=== PATIENT | female | born 1950 | race Caucasian/White ===

== ENCOUNTER → 2017-08-24 | Outpatient (CLI) | payer OTHER ==
[~2017-08-24] MED LIST: IOPAMIDOL (ISOVUE-300) 100 ML BTL ONE
== END ==
LOC: CIMAGING 09:23
PROVIDERS: ATTEND Family Medicine
DX: C79.00 Secondary malignant neoplasm of unspecified kidney and renal pelvis (principal); C77.2 Secondary and unspecified malignant neoplasm of intra-abdominal lymph nodes; C78.7 Secondary malignant neoplasm of liver and intrahepatic bile duct; C78.00 Secondary malignant neoplasm of unspecified lung; C49.9 Malignant neoplasm of connective and soft tissue, unspecified; E27.8 Other specified disorders of adrenal gland; Z90.710 Acquired absence of both cervix and uterus
CPT/HCPCS: 71260; 74177; Q9967

== ENCOUNTER 2017-09-11 08:57 | Day surgery (SDC) | payer OTHER ==
[2017-09-11] MEDS ORDERED: NALOXONE HCL 0.4 MG/ML INJ ONE (09:33)
[2017-09-11] MEDS ORDERED: FLUMAZENIL 0.5 MG/5 ML MDV IVP ONE (09:33)
[2017-09-11] MEDS ORDERED: MIDAZOLAM 2 MG/2 ML VIAL ONE (09:33)
[2017-09-11] MEDS ORDERED: fentaNYL 100 MCG/2 ML INJ ONE (09:33)
[2017-09-11] MEDS ORDERED: MEPERIDINE 25 MG/ML SYR IVP PRN (09:38)
[2017-09-11] MEDS ORDERED: GLUCAGON HCL 1 MG VIAL IVP PRN (09:38)
[2017-09-11] MEDS ORDERED: FLUMAZENIL 0.5 MG/5 ML MDV IVP PRN (09:38)
[2017-09-11] MEDS ORDERED: NALOXONE HCL 0.4 MG/ML INJ IVP PRN (09:38)
[2017-09-11] MEDS ORDERED: MIDAZOLAM 2 MG/2 ML VIAL IVP PRN (09:38)
[2017-09-11] MEDS ORDERED: fentaNYL 100 MCG/2 ML INJ IVP PRN (09:38)
[2017-09-11] MEDS ORDERED: HEPARIN 10,000 UNIT/10 ML MDV (1,000 UNIT/ML) IVP PRN (09:38)
[2017-09-11] MEDS ORDERED: PROTAMINE SULFATE 50 MG/5 ML VIAL IVP PRN (09:38)
[2017-09-11] MEDS ORDERED: ALTEPLASE 2 MG VIAL IVP PRN (09:38)
[2017-09-11] MEDS ORDERED: hydrALAZINE 20 MG/ML VIAL IVP PRN (09:38)
[2017-09-11] MEDS ORDERED: NS 1,000 ML IV SCH (09:45)
[2017-09-11 10:06] LABS: PLATELET COUNT 569 10^3/uL (150-400)
[2017-09-11 10:14] LABS: INR 1.02 (0.83-1.16); PROTIME(PATIENT) 13.6 SEC (12.0-15.0)
--- NOTE | 2017-09-11 10:46 | PDRADPRE ---
Radiology History & Physical Indication for procedure: other (masses) Home medications: Ambien 5 mg PO PRN 09/06/17 [Last Taken 09/06/17] Herbals/Supplements -Info Only DAILY 09/06/17 [Last Taken 09/10/17] Mirtazapine 15 mg PO HS 09/06/17 [Last Taken 09/10/17] Tylenol 09/11/17 [Last Taken 09/11/17] Allergies/Adverse Reactions: No Known Allergies Allergy (Unverified 09/06/17 18:22) Mental status: A&Ox3 Heart exam: regular rate and rhythm Mallampati Score: Class 2 (ASA 3)
[2017-09-11] MEDS ORDERED: LIDOCAINE 1% 300 MG/30 ML SDV ONE (11:21)
[2017-09-11] MEDS ORDERED: ONDANSETRON 4 MG/2 ML VIAL IVP PRN (12:42)
[2017-09-11] MEDS ORDERED: oxyCODONE IR 5 MG TAB PO PRN (12:42)
[2017-09-11] MEDS ORDERED: ACETAMINOPHEN 325 MG TAB PO PRN (14:43)
[2017-09-11 16:06] VITALS: BP 112/76
== END 2017-09-11 18:28 | disposition home or self-care (01) ==
LOC: FIMAGING 08:57
PROVIDERS: ATTEND Internal Medicine Hematology & Oncology
PROC: 0TB13ZX Excision of Left Kidney, Percutaneous Approach, Diagnostic (ICD-10-PCS; principal; 2017-09-11 12:42)
DX: C64.2 Malignant neoplasm of left kidney, except renal pelvis (principal); Z78.0 Asymptomatic menopausal state; Z87.891 Personal history of nicotine dependence
CPT/HCPCS: J2250; J2310; J3010

== ENCOUNTER → 2017-11-16 | Outpatient (CLI) | payer OTHER ==
[~2017-11-16] MED LIST changes: +GADOBUTROL 10 ML VIAL IVP ONE; -IOPAMIDOL (ISOVUE-300) 100 ML BTL ONE
== END ==
LOC: FIMAGING 12:58
PROVIDERS: ATTEND Internal Medicine Hematology & Oncology
DX: C79.31 Secondary malignant neoplasm of brain (principal); C65.2 Malignant neoplasm of left renal pelvis
CPT/HCPCS: 70553; A9585

== ENCOUNTER 2017-12-10 10:39 | Day surgery (SDC) | payer OTHER ==
--- NOTE | 2017-12-10 08:25 | PDGENHP ---
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 Veins have taken a beating. Here for durable access History Information - Allergies/Home Medication List Allergies/Adverse Reactions: No Known Allergies Allergy (Unverified 09/06/17 18:22) Home Medications: Ambien 5 mg PO PRN 09/06/17 [Last Taken 09/06/17] Herbals/Supplements -Info Only DAILY 09/06/17 [Last Taken 09/10/17] Mirtazapine 15 mg PO HS 09/06/17 [Last Taken 09/10/17] Tylenol 09/11/17 [Last Taken 09/11/17] I have personally reviewed and updated: medical history, surgical history - Social History Smoking Status: Never smoked Review of Systems Review of Systems: ROS: 10pt was reviewed & negative except for what was stated in HPI & below Physical Exam Physical Exam: Constitutional: no apparent distress, appears nourished, not in pain Eyes: PERRL, anicteric sclera, EOMI Ears, Nose, Mouth, Throat: moist mucous membranes, hearing normal, ears appear normal, no oral mucosal ulcers Cardiovascular: regular rate and rhythym, no murmur, rub, or gallop, No edema Respiratory: no respiratory distress, no rales or rhonchi, clear to auscultation Gastrointestinal: normoactive bowel sounds, soft, non-tender abdomen, no palpable masses Genitourinary: no bladder fullness, no bladder tenderness Skin: warm, normal color, no rashes or abrasions, no fluctuance, no induration, No mottled Musculoskeletal: full muscle strength, no muscle tenderness, normal joint ROM, no joint effusions Psychiatric: interacting appropriately, not anxious, not encephalopathic, thought process linear Lymph, Heme, Immunologic: no cervical LAD, no supraclavicular LAD Assessment & Plan Assessment: renal pelvis cancer Plan: to OR for port placement. RBA discussed
[2017-12-10] MEDS ORDERED: BUPIVACAINE 0.25% 30 ML SDV ONE (10:49)
[2017-12-10] MEDS ORDERED: EPINEPHrine 1 MG/ML INJ ONE (10:49)
[2017-12-10] MEDS ORDERED: CEFAZOLIN 2 GM/DEXTROSE/100 ML BAG IV ONE (11:02)
[2017-12-10] MEDS ORDERED: LR 1,000 ML IV ONE (11:37)
[2017-12-10] MEDS ORDERED: ceFAZolin 2 GM/DEXTROSE 100 ML IV ONE (11:42)
--- NOTE | 2017-12-10 11:46 | PDANEPAE ---
ANE History of Present Illness Port placement ANE Past Medical History - Cardiovascular History Hx Hypertension: No Hx Arrhythmias: No Hx Chest Pain: No Hx Coronary Artery / Peripheral Vascular Disease: No Hx CHF / Valvular Disease: No Hx Palpitations: No - Pulmonary History Hx COPD: No Hx Asthma/Reactive Airway Disease: No Hx Recent Upper Respiratory Infection: No Hx Oxygen in Use at Home: No Hx Sleep Apnea: Yes Pulmonary History Comment: Sleep apnea-pt does not wear CPAP - Neurologic History Hx Cerebrovascular Accident: No Hx Seizures: No Hx Dementia: No - Endocrine History Hx Diabetes: No - Renal History Hx Renal Disorders: Yes Renal History Comment: Left kidney tumor - Liver History Hx Hepatic Disorders: No - Neurological & Psychiatric Hx Hx Neurological and Psychiatric Disorders: No - Cancer History Hx Cancer: Yes Cancer History Comment: Lung, left kidney, adrenal glands - Congenital Disorder History Hx Congenital Disorders: No - GI History Hx Gastrointestinal Disorders: No - Chronic Pain History Chronic Pain: Yes (pelvic/abdominal area, left kidney) - Surgical History Prior Surgeries: Hysterectomy-1985. endometriosis-laparatomy x5 ANE Review of Systems Review of systems is: negative Review of Systems: - Exercise capacity METS (RN): 6 METS ANE Patient History - Allergies Allergies/Adverse Reactions: No Known Allergies Allergy (Unverified 09/06/17 18:22) - Home Medications Home medications: home medication list seen and reviewed Home Medications: Mirtazapine 15 mg PO HS 09/06/17 [Last Taken 12/09/17] DEXAMETHASONE 12/10/17 [Last Taken 12/10/17 08:00 2] - NPO status NPO Status: no food or drink >8 hours NPO Since - Liquids (Date): 12/10/17 NPO Since - Liquids (Time): 08:00 NPO Since - Solids (Date): 12/09/17 NPO Since - Solids (Time): 17:00 - Anes Hx Anes Hx: no prior problems - Smoking Hx Smoking Status: Never smoked - Family Anes Hx Family Anes Hx: none Family Hx Anesthesia Complications: None ANE Labs/Vital Signs - Vital Signs Vital Signs: reviewed preoperatively; see RN documention for details Blood Pressure: 130/77 Heart Rate: 82 Respiratory Rate: 18 O2 Sat (%): 98 ANE Physical Exam - Airway Neck exam: FROM Mallampati Score: Class 1 Mouth exam: small mouth opening - Pulmonary Pulmonary: no respiratory distress - Cardiovascular Cardiovascular: regular rate and rhythym - ASA Status ASA Status: III ANE Anesthesia Plan Total IV Anesthesia: Yes
[2017-12-10] MEDS ORDERED: MIDAZOLAM 2 MG/2 ML VIAL IVP ONE (11:47)
[2017-12-10] MEDS ORDERED: PROPOFOL/EMULSION 500 MG/50 ML BOTTLE IV ONE (12:06)
[2017-12-10] MEDS ORDERED: HYDROCODONE/APAP 5/325 TAB PO PRN (12:34)
[2017-12-10] MEDS ORDERED: DEXAMETHASONE 4 MG/ML VIAL IVP PRN (12:34)
[2017-12-10] MEDS ORDERED: ACETAMINOPHEN 500 MG TAB PO PRN (12:34)
[2017-12-10] MEDS ORDERED: oxyCODONE IR 5 MG TAB PO PRN (12:34)
[2017-12-10] MEDS ORDERED: NALOXONE HCL 0.4 MG/ML INJ IVP PRN (12:34)
[2017-12-10] MEDS ORDERED: ONDANSETRON 4 MG/2 ML VIAL IVP PRN (12:34)
[2017-12-10] MEDS ORDERED: fentaNYL 100 MCG/2 ML INJ IVP PRN (12:34)
[2017-12-10] MEDS ORDERED: MEPERIDINE 25 MG/0.5 ML AMP IVP PRN (12:34)
--- NOTE | 2017-12-10 12:34 | POSTANESTH ---
Post Anesthetic Evaluation Cardiovascular Status: Normal, Stable, Similar to Pre-Op Cond Respiratory Status: Normal, Stable, Similar to Pre-op Cond. Level of Consciousness/Mental Status: Can Participate in Eval, Moderately Sleepy Pain Control: Adequate, Prn Tx Ordered Nausea/Vomiting Control: Adequate, Prn Tx Ordered Complications Possibly Related to Anesthesia: None Noted
--- NOTE | 2017-12-10 13:17 | POSTOPPROG ---
Post Op Note Date of Operation: 12/10/17 Surgeon: Doe Paiz Anesthesiologist: Perry Anesthesia: IV Sedation Pre-op Diagnosis: cancer Post-op Diagnosis: same Procedure: US guided L IJ port placement c intraop fluoro Findings: good placement, flushed and withdrew appropriately Inf/Abcess present in the surg proc area at time of surgery?: No EBL: Minimal
--- NOTE | 2017-12-10 13:57 | GOP ---
DATE OF OPERATION: 12/10/2017 SURGEON: Doe Paiz MD DIRECTOR STRATEGY: None. ANESTHESIA: IV sedation. ANESTHESIOLOGIST: Gage Reed MD. PREOPERATIVE DIAGNOSIS: Renal pelvis cancer. POSTOPERATIVE DIAGNOSIS: Renal pelvis cancer. PROCEDURE PERFORMED: Ultrasound-guided left internal jugular PowerPort placement with intraoperative fluoroscopy. FINDINGS: Successful cannulation of the left internal jugular vein with appropriate port placement. The port both flushed and withdrew appropriately. It was heparin locked at the end of the procedure . SPECIMENS: None. ESTIMATED BLOOD LOSS: 5 cc. DESCRIPTION OF PROCEDURE: The patient was greeted in the preoperative suite. Once again, risks, venkatesh efits, and alternatives were discussed. Consent was then signed. She was brought back to the operat eric suite and placed on the OR table in the supine position. After all anesthesia machines including SCDs were on and functioning, [employer] time-out was performed. After the patient w as gently sedated, I prepped and draped her left neck in the typical sterile fashion. I identified t he left internal jugular vein with ultrasound guidance and successfully cannulated it with one stick. Once successfully in the vein, my guidewire was passed and using intraoperative fluoroscopy, placed it into the superior vena cava. Once this was done, I placed my peel-away sheath into the vein itse lf with fluoroscopy. I then selected a site approximately 2 fingerbreadths below the left clavicle. I made a 1-inch incision and made an inferior pocket. I then tunneled the port catheter from the po cket to the peel-away sheath and successfully placed it in through the patient's superior vena cava a nd sized it to atriocaval junction appropriately. Once sized, it was attached to the port. The port both flushed and withdrew appropriately. It was heparin locked. The port was attached to the under lying chest wall with an interrupted Prolene stitch. The skin was closed in layers, first with 3-0 V icryl, then 4-0 Monocryl, over which Dermabond was placed. The patient was then gently awoken in the operative suite and taken to the PACU in satisfactory condition. DRAINS: None. COUNTS: All counts were reported as correct x2. /[id number]/MODL
[2017-12-10 13:58] VITALS: BP 110/72
== END 2017-12-10 14:57 | disposition home or self-care (01) ==
LOC: FSGY 10:39
PROVIDERS: ATTEND Surgery
PROC: 02HV33Z Insertion of Infusion Device into Superior Vena Cava, Percutaneous Approach (ICD-10-PCS; principal; 2017-12-10 12:00)
DX: C65.9 Malignant neoplasm of unspecified renal pelvis (principal)
CPT/HCPCS: C1788; J0171; J0690; J1642; J2250; J2704

== ENCOUNTER → 2018-01-08 | Outpatient (CLI) | payer OTHER | LOC: FIMAGING 09:59 | PROVIDERS: ATTEND Internal Medicine Hematology & Oncology | DX: C79.31 Secondary malignant neoplasm of brain (principal); C65.9 Malignant neoplasm of unspecified renal pelvis | CPT/HCPCS: 70553; A9585; J1642 ==

== ENCOUNTER → 2018-03-11 | Outpatient (CLI) | payer OTHER ==
[~2018-03-11] MED LIST changes: -GADOBUTROL 10 ML VIAL IVP ONE; +IOPAMIDOL (ISOVUE 370) 100 ML BTL IV ONE
== END ==
LOC: CIMAGING 11:07
PROVIDERS: ATTEND Internal Medicine Hematology & Oncology
DX: C65.2 Malignant neoplasm of left renal pelvis (principal); M79.605 Pain in left leg; M25.552 Pain in left hip; M16.12 Unilateral primary osteoarthritis, left hip; C78.00 Secondary malignant neoplasm of unspecified lung
CPT/HCPCS: 71260; 73701; 74177; Q9967

== ENCOUNTER → 2018-04-10 | Outpatient (CLI) | payer OTHER ==
[~2018-04-10] MED LIST changes: +GADOBUTROL 10 ML VIAL IVP ONE; -IOPAMIDOL (ISOVUE 370) 100 ML BTL IV ONE
== END ==
LOC: FIMAGING 13:56
PROVIDERS: ATTEND Internal Medicine Hematology & Oncology
DX: C65.2 Malignant neoplasm of left renal pelvis (principal)
CPT/HCPCS: 70553; A9585

== ENCOUNTER 2018-08-28 07:12 | Inpatient (IN) | payer OTHER | END 2018-08-29 19:03 | disposition home or self-care (01) | LOC: F1N 11:17 ==